=== PATIENT | female | born 1950 | race American Indian/Alaskan Native ===

== ENCOUNTER 2018-11-02 08:48 | Outpatient (CLI) | payer MEDICARE ==
--- NOTE | 2018-11-02 15:56 | Ultrasound Report ---
BILATERAL DIGITAL DIAGNOSTIC MAMMOGRAM with CAD and BILATERAL BREAST ULTRASOUND: 11/02/18 08:48:00 CLINICAL: Recently diagnosed right breast cancer. She had an ultrasound guided needle biopsy of a right breast mass in [place], [place] 06/22/18. It was described as 1.8 cm right breast mass at 8-9 o'clock 5 cm from the nipple and the pathology revealed invasive mammary carcinoma with both ductal and lobular features, ER/RI positive and HER-2 negative. COMPARISON:Reports but no images from [place] or from breast MRI performed at [place] 09/17/18. FINDINGS: The breasts are heterogeneously dense, which may obscure small masses. An irregular relatively dense right lower mass is identified far posterior on the MLO view and it measures at least 4 cm. A biopsy clip is not identified. No other mass, architectural distortion or suspicious calcifications. Ultrasound of right breast (including all four quadrants and the retroareolar area) was performed and demonstrated an irregular solid heterogeneous hypoechoic mass at 8 o'clock 4 cm from the nipple. It measures approximately 3.4 x 2.0 x 4.3 cm and correlates with the mammographic mass. Prominent duct ectasia extends medial to the mass the 6 o'clock position. No other mass of the right breast is identified. Specifically, no oval mass in the middle of the breast to correlate with an 11 x 7 by 8mm mass identified by MRI and nothing to correlate with an 8mm oval mass in the right lower quadrant at 7 o'clock as identified by MRI. Ultrasound of the right axilla demonstrated no suspicious lymph node. A lymph node with central fat measures 1.6 x 0.5 x 0.9 cm and has a maximum cortical thickness of approximately 2.7 mm. Ultrasound of the left breast (including all four quadrants and the retroareolar area) was performed and demonstrated a solid irregular hypoechoic mass with angular margins at 8:30 o'clock 3 cm from the nipple. It measures 5 x 3 x 6 mm. No other mass of the left breast is identified. Specifically, no round mass in the middle lower inner quadrant to correlate with a mass described by MRI. Ultrasound of the left axilla demonstrated a single suspicious lymph node with an irregular cortex measuring 4 mm maximum thickness. The lymph node measures 1.7 x 0.6 x 1.5 cm. IMPRESSION: 1. A 4.3 x 3.4 x 2.0 cm right breast mass at 8 o'clock which correlates with the biopsy proven right breast cancer. 2. No additional suspicious mass of the right breast to correlate with 2 additional right breast masses identified by MRI. 3. A suspicious 5 mm left breast mass at 8:30 o'clock 3 cm from the nipple and a suspicious left axillary lymph node. 4. No central left breast mass to correlate with a mass identified by MRI. BI-RADS CATEGORY: 6 -- Known Cancer RECOMMENDATION: 1. Ultrasound guided needle biopsy of the left breast mass at 8:30 o'clock 3 cm from the nipple and ultrasound guided needle biopsy of a left axillary lymph node. 2. A followup MRI after appropriate treatment to reevaluate abnormalities in each breast which have only been identified by MRI. ACR BI-RADS MAMMOGRAPHIC CODES: 0 = Needs additional imaging evaluation; 1 = Negative; 2 = Benign; 3 = Probably benign; 4 = Suspicious; 5 = Malignant; 6 = Known biopsy-proven malignancy COMMENT: 1. Dense breast tissue, i.e., adenosis, fibrocystic changes, etc., may obscure an underlying neoplasm. 2. Approximately 10% of cancers are not detected with mammography. 3. A negative mammography report should not delay biopsy if a clinically suspicious mass is present. COMMENT: Patient follow-up letters are generated by our Virtual [employer] application.
== END 2018-11-02 08:49 | disposition home or self-care (01) ==
LOC: SPVWC 08:48
PROVIDERS: ATTEND Surgery
DX: C50.511 Malignant neoplasm of lower-outer quadrant of right female breast (principal)
CPT/HCPCS: 77066

== ENCOUNTER 2019-06-27 11:14 | Outpatient (CLI) | payer MEDICARE ==
--- NOTE | 2019-06-27 14:33 | Ultrasound Report ---
BILATERAL DIGITAL DIAGNOSTIC MAMMOGRAM WITH CAD -- 06/27/2019 RIGHT COMPLETE BREAST ULTRASOUND INDICATION: Personal history of breast cancer status post right partial mastectomy 12/15/2018 TECHNIQUE: Digital bilateral mammographic imaging was performed. This examination was interpreted wi th the benefit of Computer-Aided Detection (CAD) analysis. COMPARISON: 11/02/2018 FINDINGS: Breast Density: The breasts are heterogeneously dense, which may obscure small masses. MAMMOGRAPHIC FINDINGS: There is no evidence of dominant mass, suspicious calcifications or architectu ral distortion in either breast. The right breast is smaller than the left. Moderate bilateral nonspe cific skin thickening. ULTRASOUND FINDINGS: Complete sonographic evaluation of all 4 quadrants and retroareolar region was p erformed. Ultrasound of the right breast demonstrated a postop seroma from 7-9 o'clock 9 cm from th e nipple measuring 5.5 x 2.3 x 4.9 cm. No mass or suspicious shadowing. IMPRESSION: A 5.5 cm benign right postop seroma and no suspicious finding in either breast. Follow up recommendation: Routine yearly BI-RADS Category 2: Benign. A "normal" or negative report should not discourage follow up or biopsy of a clinically significant f inding. A written summary of these findings will be mailed to the patient. The patient will be entered into a mammography reporting system which will generate a reminder letter for the patient's next appointmen t at the appropriate interval. According to the [employer], yearly mammograms are recommended starting at age 40 and continuing as long as a woman is in good health. Breast MRI is recommended for women with an durga roximately 20-25% or greater lifetime risk of breast cancer, including women with a strong family his tory of breast or ovarian cancer and women who have been treated for Hodgkin's disease. Signer Name: Blane Avina MD Signed: 06/27/2019 2:28 PM Workstation Name: [id number]
== END 2019-06-27 11:15 | disposition home or self-care (01) ==
LOC: SPVWC 11:14
PROVIDERS: ATTEND Surgery
DX: N64.89 Other specified disorders of breast (principal); Z85.3 Personal history of malignant neoplasm of breast; Z90.11 Acquired absence of right breast and nipple
CPT/HCPCS: 77066

== ENCOUNTER 2019-12-08 09:30 | Outpatient (CLI) | payer MEDICARE ==
--- NOTE | 2019-12-08 10:24 | Mammography Report ---
DIGITAL DIAGNOSTIC MAMMOGRAM, 12/08/2019 INDICATION: Left upper outer breast palpable finding. TECHNIQUE: Digital left mammographic imaging was performed. COMPARISON: 06/27/2019, an ultrasound was performed at another facility which demonstrated a mass at t he 1:30 position left breast. FINDINGS: Breast Density: The breasts are heterogeneously dense, which may obscure small masses. There is a triangular marker which overlies the left upper outer posterior breast. This corresponds w ith the site of a reported palpable finding. Just deep to this palpable marking is a partially obscur ed lobulated isodense mass. This is best seen on the MLO view. IMPRESSION: Left breast mass for which ultrasound-guided biopsy is recommended. Ultrasound-guided biopsy is sched uled for later this same day. BI-RADS Category 4: Suspicious for Malignancy. A "normal" or negative report should not discourage follow up or biopsy of a clinically significant f inding. A written summary of these findings will be mailed to the patient. The patient will be entered into a mammography reporting system which will generate a reminder letter for the patient's next appointmen t at the appropriate interval. According to the [employer], yearly mammograms are recommended starting at age 40 and continuing as long as a woman is in good health. Breast MRI is recommended for women with an durga roximately 20-25% or greater lifetime risk of breast cancer, including women with a strong family his tory of breast or ovarian cancer and women who have been treated for Hodgkin's disease. Signer Name: Missael Johnson MD Signed: 12/08/2019 10:19 AM Workstation Name: [id number]
--- NOTE | 2019-12-08 12:00 | Mammography Report ---
DIGITAL DIAGNOSTIC MAMMOGRAM, 12/08/2019 INDICATION: Status post biopsy, assess clip location. COMPARISON: Mammogram and ultrasound performed earlier the same day. TECHNIQUE: Digital left mammographic imaging was performed. FINDINGS: There is a biopsy marker at the site of a previously noted left breast mass at the 1:30 position. IMPRESSION: Concordant clip placement. Postbiopsy imaging. A "normal" or negative report should not discourage follow up or biopsy of a clinically significant f inding. A written summary of these findings will be mailed to the patient. The patient will be entered into a mammography reporting system which will generate a reminder letter for the patient's next appointmen t at the appropriate interval. According to the [employer], yearly mammograms are recommended starting at age 40 and continuing as long as a woman is in good health. Breast MRI is recommended for women with an durga roximately 20-25% or greater lifetime risk of breast cancer, including women with a strong family his tory of breast or ovarian cancer and women who have been treated for Hodgkin's disease. Signer Name: Missael Johnson MD Signed: 12/08/2019 11:56 AM Workstation Name: [id number]
--- NOTE | 2019-12-08 12:03 | Ultrasound Report ---
ULTRASOUND-GUIDED LEFT BREAST BIOPSY WITH MARKER HISTORY: Left breast mass at the 1:30 position. COMPARISON: Mammogram performed earlier the same day. CONSENT: Technique, risks and alternatives were discussed with the patient and informed written conse nt obtained. PROCEDURE: A targeted ultrasound of the left breast focused at the 1:30 position, 6 cm from nipple, demonstrates a 1.4 x 1.6 x 0.7 cm lobulated solid-appearing hypoechoic oval mass. This was identified as a target for biopsy. The overlying skin was cleansed with Betadine. The skin and superficial soft tissues w ere anesthetized with a small amount of buffered 1% lidocaine. The deeper soft tissues were anesthet ized with buffered 1% lidocaine with epinephrine. A small dermatotomy was created through which a 14 -gauge spring loaded core biopsy needle was utilized to obtain a total of 4 core samples. At the con clusion of the procedure, a SecurMark biopsy marker was deployed within the residual mass. Manual pressure was applied at the biopsy site to achieve hemostasis. The incision margins were appro ximated with Steri-Strips. Post procedure care instructions were administered in both verbal and written forms. The patient voic ed understanding and left the breast center in stable, satisfactory condition. IMPRESSION Technically successful ultrasound-guided core biopsy of left breast mass at the 1:30 position with ma rker placement. Patient is scheduled to follow up with Dr. Comer next week regarding biopsy resul ts. An addendum to this report will be added upon receipt of the final pathologic diagnosis. Signer Name: Missael Johnson MD Signed: 12/08/2019 11:59 AM Workstation Name: [id number]
== END 2019-12-08 09:31 | disposition home or self-care (01) ==
LOC: SPVWC 09:30
PROVIDERS: ATTEND Surgery
DX: N63.21 Unspecified lump in the left breast, upper outer quadrant (principal); C50.412 Malignant neoplasm of upper-outer quadrant of left female breast; I10 Essential (primary) hypertension; Z98.890 Other specified postprocedural states
CPT/HCPCS: 88305; 88341; 88342

== ENCOUNTER 2019-12-28 14:31 | Outpatient (CLI) | payer MEDICARE ==
--- NOTE | 2020-01-04 10:14 | Magnetic Resonance Report ---
BILATERAL BREAST MR WITHOUT AND WITH GADOLINIUM INDICATION: Breast cancer survivor status post right partial mastectomy 12/15/2018 COMPARISONS: 09/17/2018 preop MRI TECHNIQUE: Axial 1.0 mm T1 without, axial high-resolution 2.0 mm T2 and axial 1.0 mm dynamic vibrant high-resolution postcontrast T1 fat saturation sequences on a 1.5 Saloni magnet. The examination was p erformed with an 8-channel dedicated Sentin[place] breast coil. Post-processing with CAD and subtraction was performed on an [employer] workstation. 13.0 cc of MultiHance was injected without incident for the c ontrast portion of the exam. Consent was obtained prior to the administration of the contrast. FINDINGS: RIGHT BREAST: Minimal background parenchymal enhancement. No mass or suspicious enhancement. A latera l far posterior scar at the chest wall with an associated seroma measuring 3.5 x 3.1 x 1.[address] Modera [address] skin thickening of the breast and diffuse T2 hyperintensity. No suspicious lymph nodes. LEFT BREAST: Minimal background parenchymal enhancement. No mass or suspicious enhancement. Diffuse T 2 hyperintensity of the breasts similar to the appearance of the right breast. However, no skin thick ening of the left breast. No suspicious lymph nodes. IMPRESSION: 1. No evidence of malignancy. 2. Right benign postsurgical scar with a 3.5 cm benign seroma at the scar. 3. Benign skin thickening of the right breast. 4. Bilateral diffuse T2 hyperintensity of the breasts is a nonspecific finding which may be related t o systemic disease such as heart failure or renal failure. BI-RADS Category 2: Benign A normal MRI does not exclude the presence of some forms of breast malignancy as literature reports s uggest that some forms of ductal carcinoma in situ or lobular carcinoma, particularly, may not be det ected on MRI. The sensitivity and specificity of MRI for cancers under 5 mm may be reduced. MRI does not replace the recommendation for annual conventional mammographic evaluation and should be used as an adjunct to mammography and physical examination as necessary. Signer Name: Blane Avina MD Signed: 01/04/2020 10:10 AM Workstation Name: [id number]
== END 2019-12-28 14:32 | disposition home or self-care (01) ==
LOC: SPVIMAG 14:31
PROVIDERS: ATTEND Surgery
DX: C50.412 Malignant neoplasm of upper-outer quadrant of left female breast (principal); R23.4 Changes in skin texture; L76.34 Postprocedural seroma of skin and subcutaneous tissue following other procedure
CPT/HCPCS: A9577; C8908; 77049

== ENCOUNTER 2020-11-13 14:55 | Outpatient (CLI) | payer MEDICARE ==
--- NOTE | 2020-11-13 15:41 | Mammography Report ---
DIGITAL DIAGNOSTIC MAMMOGRAM WITH CAD CONVENTIONAL, 11/13/2020 CLINICAL INFORMATION / INDICATION: BREAST CA C50.412 TECHNIQUE: Digital bilateral mammographic imaging was performed. This examination was interpreted with the benefit of Computer-aided Detection analysis. COMPARISON: 06/25/2020 and prior FINDINGS: Breast Density: The breasts are extremely dense, which lowers the sensitivity of mammography. Right surgical changes and skin thickening from right radiation therapy changes are again noted. 9 ap pearing left calcifications are again seen. No suspicious changes are noted. IMPRESSION: No mammographic evidence of malignancy. Follow up recommendation: Routine yearly BI-RADS Category 2: Benign. A "normal" or negative report should not discourage follow up or biopsy of a clinically significant f inding. A written summary of these findings will be mailed to the patient. The patient will be entered into a mammography reporting system which will generate a reminder letter for the patient's next appointmen t at the appropriate interval. According to the [employer], yearly mammograms are recommended starting at age 40 and continuing as long as a woman is in good health. Breast MRI is recommended for women with an durga roximately 20-25% or greater lifetime risk of breast cancer, including women with a strong family his tory of breast or ovarian cancer and women who have been treated for Hodgkin's disease. Signer Name: Jacinto Lewis MD Signed: 11/13/2020 3:37 PM Workstation Name: [id number]
--- NOTE | 2020-11-13 16:34 | Ultrasound Report ---
ULTRASOUND BREAST LEFT COMPLETE, 11/13/2020 CLINICAL INFORMATION / INDICATION: History of bilateral breast cancer. TECHNIQUE: Complete sonographic evaluation of all 4 quadrants and retroareolar region was performed. COMPARISON: MR breast for 03/10/2020, bilateral mammogram today, left breast ultrasound 12/08/2019, lewis ateral breast ultrasound 11/02/2018 FINDINGS: In the 1:30 position of the left breast the known malignant mass with a biopsy clip is agai n seen. This has a maximal diameter of 15 mm compared to 16 mm on 12/08/2019. Not seen on study in 201 9. In the adjacent areas of the upper outer quadrant from 1232 1:00, 3 to 5 cm from the nipple, 2 elonga domonique hypoechoic irregular possible nodules are seen which were not obvious on prior studies. One has a length of 15 mm and the smaller has a length of just under 10 mm. Multiple other abnormalities within the breast on study in 2019 are not seen today. Multiple abnormal lymph nodes are seen in the left axilla. The most abnormal node which has only mini mal internal hilum visible as a short axis diameter of 14 mm. Several other nodes are seen in the lef t axilla with thickened cortices. These nodes are more much more prominent than study in 2019. IMPRESSION: 1. Known malignant mass is similar in appearance to biopsy images of 12/07/2021 2. 2 adjacent hypoechoic areas are seen in the upper outer left breast which were not clearly imaged on prior studies. These are of concern for additional satellite lesions. 3. Prominently abnormal left axillary lymph nodes consistent with metastatic disease Follow up recommendation: Ultrasound-guided biopsy could be performed of the new left breast lesions and an axillary lymph node if clinically desired BI-RADS Category 6: Known Biopsy-Proven Malignancy. A normal or "negative" report should not preclude biopsy or follow-up of a clinically suspicious find ing. Signer Name: Jacinto Lewis MD Signed: 11/13/2020 4:29 PM Workstation Name: [id number]
== END 2020-11-13 14:56 | disposition home or self-care (01) ==
LOC: SPVWC 14:55
PROVIDERS: ATTEND Surgery
DX: C50.412 Malignant neoplasm of upper-outer quadrant of left female breast (principal); N63.21 Unspecified lump in the left breast, upper outer quadrant
CPT/HCPCS: 77066

== ENCOUNTER 2020-11-16 15:45 | Outpatient (CLI) | payer MEDICARE | END 2020-11-16 15:46 | disposition home or self-care (01) | LOC: LABHHL 15:45 | PROVIDERS: ATTEND Surgery | DX: C50.412 Malignant neoplasm of upper-outer quadrant of left female breast (principal); C44.90 Unspecified malignant neoplasm of skin, unspecified; L98.9 Disorder of the skin and subcutaneous tissue, unspecified; N63.12 Unspecified lump in the right breast, upper inner quadrant; R59.9 Enlarged lymph nodes, unspecified | CPT/HCPCS: 88305; 88307; 88341; 88342 ==